=== PATIENT | female | born 1970 | race Caucasian/White ===

== ENCOUNTER 2017-10-16 06:56 | Inpatient (IN) | payer OTHER ==
[~2017-10-16] VITALS: Ht 154.9 cm; Wt 71.2 kg
--- NOTE | 2017-10-16 07:30 | NUR ---
PLUCK SEPARATOR NOTES PATIENT DIRECT ADMIT FROM [place] [facility]. PATIENT ARRIVED AT UNIT AT 0710 VIA GURNEY. PATIENT AWAKE, ALERT AND ORIENTED X 4. VERBALLY RESPONSIVE AND RESPONDS TO VERBAL AND TACTILE STIMULI. BREATHING EVEN AND UNLABORED. NO SOB OR ACUTE DISTRESS NOTED, NO CHANGES IN LOC NOTED AT THIS TIME. PATIENT ACCOMPAINED BY BROTHER. NOTED WITH MULTIPLE SCATTERED PUSTULES ON BOTH PALMS WITH REDNESS ON BILATERAL HANDS EXTENDING TO FOREARM. PER PATIENT, IT STARTED ON THE LEFT HAND ON WEDNESDAY (10/13/17) AND THEN RIGHT HAND STARTED THE NEXT DAY (10/14/17). DENIES ANY PAIN ON BOTH HANDS. MD MADE AWARE OF ADMISSION. WILL CONTINUE TO MONITOR
--- NOTE | 2017-10-16 07:31 | NUR ---
PURCHASE ANALYST NOTES CLARIFICATION OF FOREARM DISCOLORATION: REDNESS NOTED RIGHT PALM AND HAND, EXTENDING TO RIGHT FOREARM. LEFT PALM WITH SLIGHT REDNESS, NO DISCOLORATION ON LEFT FOREARM. WILL CONTINUE TO MONITOR
[2017-10-16] MEDS ORDERED: HYDROCODONE/APAP 5/325MG 1 EACH TABLET PO PRN ×2 (11:00→12:00)
[2017-10-16] MEDS: PIPERACILLIN /TAZOBACTAM 3.375 G in IV D5W 50 ML IV SCH ×2 (11:48→17:44)
[2017-10-16] MEDS ORDERED: ACETAMINOPHEN 325 MG TABLET PO PRN (12:00)
[2017-10-16] MEDS ORDERED: ONDANSETRON HCL/PF 4 MG/2 ML VIAL IVP PRN (12:00)
[2017-10-16] MEDS ORDERED: MAG HYDROX/AL HYDROX/SIMETH 30 ML UDC PO PRN (12:00)
[2017-10-16] MEDS ORDERED: Z GUARD REMEDY 2 OZ OINT TP PRN (12:00)
[2017-10-16] MEDS ORDERED: ZOLPIDEM TARTRATE 5 MG TABLET PO PRN (12:00)
[2017-10-16] MEDS ORDERED: MAGNESIUM HYDROXIDE 30 ML UDC PO PRN (12:00)
[2017-10-16 16:00] VITALS: BP 121/79
--- NOTE | 2017-10-16 19:21 | NUR ---
MS RN NOTES PATIENT RESTING INSIDE ROOM, AWAKE, ALERT AND ORIENTED, VERBALLY RESPONSIVE AND RESPONDS TO VERBAL AND TACTILE STIMULI. BREATHING EVEN AND UNLABORED. NO SOB OR ACUTE DISTRESS NOTED. PATIENT CALM AND RELAXED. DENIES ANY PAIN OR DISCOMFORT. IV SITE INTACT AND PATENT, NO BLEEDING NOTED. ENDORSED TO INCOMING SHIFT FOR ABBY. BED LOCKED AND IN LOW POSITION. BILATERAL UPPER SIDE RAILS UP AND LOCKED. CALL LIGHT WITHIN EASY REACH
--- NOTE | 2017-10-16 19:45 | NUR ---
MS RN NOTES RECEIVED RESTING COMFORTABLY ON BED,A/O X3-4,BREATHING NORMAL,BOTH HANDS WITH MULTIPLE WOUNDS,NON DRAINING.SALINE LOCK LAC INTACT AND PATENT.DENIES PAIN AT THE MOMENT.CALL LIGHT IN REACH,NEEDS ANTICIPATED.
[2017-10-16 20:00] VITALS: BP 115/58
[2017-10-17] MEDS: PIPERACILLIN /TAZOBACTAM 3.375 G in IV D5W 50 ML IV SCH ×4 (00:16→17:22)
--- NOTE | 2017-10-17 06:08 | NUR ---
MS RN NOTES SLEPT WELL AT [facility].IV ABX TOLERATED WELL.DENIES PAIN,CALL LIGHT IN REACH,NEEDS ATTENDED.WILL ENDORSE TO DAY NURSE FOR ABBY.
[2017-10-17 07:25] LABS: BASOPHILS % (AUTO) 0.1 % (0.0-2.0); EOSINOPHILS % (AUTO) 2.7 % (0.0-6.0); HEMATOCRIT 30 % (33-45); HEMOGLOBIN 9.2 g/dL (11.5-14.8); LYMPHOCYTES # (AUTO) 1.7 /CMM (0.8-4.8); MEAN CORPUSCULAR HGB CONC 31 g/dl (31.0-36.0); MEAN CORPUSCULAR VOLUME 63 fL (82-100); MONOCYTES # (AUTO) 0.9 /CMM (0.1-1.30); MONOCYTES % (AUTO) 8.7 % (2.0-12.0); NEUTROPHILS # (AUTO) 7.8 /CMM (1.8-8.9); NEUTROPHILS % (AUTO) 72.5 % (43.0-81.0); PLATELET COUNT (AUTO) 403 /CMM (150-450); RDW COEFFICIENT OF VARIATION 19.9 (11.5-15.0); RED BLOOD CELL COUNT(AUTO) 4.83 MIL/uL (4.0-5.2); WHITE BLOOD COUNT (AUTO) 10.8 K/uL (4.3-11.0)
--- NOTE | 2017-10-17 07:28 | NUR ---
MS RN OPENING NOTE RECEIVED BEDSIDE SBAR REPORT ON THE PATIENT. PATIENT IS A/O X3, COOPERATIVE. PATIENT IS AWAKE AND RESPONSIVE IN BED. BED IS LOCKED IN LOWEST POSITION, SIDE RAILS UP X2, BED ALARM IS ON. PATIENT IS AMBULATORY AND ORIENTED TO OWN ABILITIES. CALL LIGHT WITHIN REACH. EDUCATED TO CALL FOR ASSISTANCE USING THE CALL LIGHT. PATIENT VERBALIZED UNDERSTANDING. SPO2 99% ON ROOM AIR. PATIENT DENIES PAIN/DISCOMFORT AT THIS TIME. WILL CONTINUE TO ASSESS/MONITOR THROUGHOUT THE SHIFT.
[2017-10-17 08:00] VITALS: BP 113/64
[2017-10-17 08:03] LABS: CALCIUM, SERUM 8.4 mg/dL (8.5-10.1); CREATININE 0.5 mg/dL (0.6-1.3); MAGNESIUM 2.3 mg/dL (1.8-2.4); PHOSPHORUS 3.1 mg/dL (2.5-4.9); POTASSIUM 3.8 mmol/L (3.5-5.1)
--- NOTE | 2017-10-17 09:48 | NUR ---
SPOKE TO NIRAJ FROM PHARMACY. NIRAJ STATED PATIENT IS IN THE AGE RANGE OF REQUIRED TEST. ORDER OBTAINED. WILL CALL LAB TO ADD ON.
[2017-10-17 16:00] VITALS: BP 120/72
--- NOTE | 2017-10-17 19:10 | NUR ---
MS/RN NOTES RECEIVED PT. LYING IN BED. PT. IS AWAKE, ALERT AND ORIENTED X4. BREATHING EVEN AND UNLABORED ON ROOM AIR. NO SOB, RESPIRATORY DISTRESS OR COMPLAINTS OF PAIN NOTED AT THIS TIME. PT. WITH LEFT AC 20 GAUGE IV SALINE LOCK PRESENT, PATENT AND INTACT. PT. WITH FAMILY MEMBERS PRESENT AT BEDSIDE. BED LOCKED AND IN LOWEST POSITION, SIDE RAILS UP X2, CALL LIGHT WITHIN REACH, WILL CONTINUE TO MONITOR.
--- NOTE | 2017-10-17 19:55 | NUR ---
MS RN CLOSING NOTE GAVE BEDSIDE SBAR REPORT ON THE PATIENT. PATIENT IS A/O X3, COOPERATIVE. PATIENT IS AWAKE AND RESPONSIVE IN BED. BED IS LOCKED IN LOWEST POSITION, SIDE RAILS UP X2, BED ALARM IS ON. PATIENT IS AMBULATORY AND ORIENTED TO OWN ABILITIES. CALL LIGHT WITHIN REACH. EDUCATED TO CALL FOR ASSISTANCE USING THE CALL LIGHT. PATIENT VERBALIZED UNDERSTANDING. SPO2 98% ON ROOM AIR. PATIENT DENIES PAIN/DISCOMFORT AT THIS TIME. ALL NEEDS ARE MET. ENDORSED TO THE PAPER STRIPPER NURSE FOR ABBY.
[2017-10-17 20:00] VITALS: BP 108/76
[2017-10-18] MEDS: PIPERACILLIN /TAZOBACTAM 3.375 G in IV D5W 50 ML IV SCH ×3 (00:19→11:28)
--- NOTE | 2017-10-18 06:28 | NUR ---
MS/RN NOTES PT. IS LYING IN BED RESTING. BREATHING EVEN AND UNLABORED ON ROOM AIR. NO SOB, RESPIRATORY DISTRESS OR COMPLAINTS OF PAIN NOTED AT THIS TIME. PT. WITH LEFT AC 20 GAUGE IV SALINE LOCK PRESENT, PATENT AND INTACT. ALL PT. NEEDS MET. BED LOCKED AND IN LOWEST POSITION, SIDE RAILS UP X2, CALL LIGHT WITHIN REACH, WILL ENDORSE TO DAYSHIFT NURSE FOR CONTINUITY OF CARE.
--- NOTE | 2017-10-18 07:15 | NUR ---
RN OPENING NOTES RECEIVED PATIENT IN BED RESTING. NO ACUTE DISTRESS, NO SOB, NO COMPLAINTS OF PAIN OR DISCOMFORT AT THIS TIME. IV SITE INTACT AND PATENT. KEPT PATIENT SAFE AND COMFORTABLE. BED IN LOW/LOCKED POSITION, SIDERAILS UPX2, CALL LIGHT IN REACH. WILL CONTINUE TO MONITOR ACCORDINGLY.
[2017-10-18 08:00] VITALS: BP 113/66
[2017-10-18] MEDS ORDERED: SULF1TAB48 PO (11:53)
--- NOTE | 2017-10-18 14:22 | NUR ---
CADASTRAL SURVEYOR NOTES DISCHARGED PATIENT IN STABLE CONDITION ACCOMPANIED BY DAUGHTER, THEY WERE IN A HURRY THAT THEY LEFT THE UNIT WITHOUT WAITING FOR SERVICE [employer] INTERN TO ACCOMPANY THEM, VERIFIED WITH THE SAFETY RISK LEAD THAT PATIENT SAFELY LEFT THE BUILDING. PER GUARD, HE SAW THE PATIENT AND ASKED FOR DIRECTION TO [facility] NEXT DOOR. DISCHARGE PAPERWORK AND INSTRUCTIONS WAS GIVEN TO PATIENT, VERBALIZED UNDERSTANDING, DC PAPERWORK GIVEN, ALL BELONGINGS RETURNED, BELONGINGS FORM SIGNED. REMOVED IV, APPLIED PRESSURE, NO BLEEDING, NO COMPLICATIONS. NAME BAND REMOVED.
== END 2017-10-18 14:20 | disposition home or self-care (01) | DRG 383 ==
LOC: TELE 06:56 → MED 13:23
PROVIDERS: ADMIT Nurse Practitioner Acute Care; ATTEND Nurse Practitioner Acute Care
DX: L03.113 Cellulitis of right upper limb (principal); S60.521A Blister (nonthermal) of right hand, initial encounter; S60.522A Blister (nonthermal) of left hand, initial encounter; X58.XXXA Exposure to other specified factors, initial encounter; Y93.9 Activity, unspecified; Y92.009 Unspecified place in unspecified non-institutional (private) residence as the place of occurrence of the external cause
CPT/HCPCS: 36415; 80048-TC; 80061-TC; 83735-TC; 84100-TC; 84703-TC; 85025-TC; 87081-TC; J2543; J7050; J7060